=== PATIENT | female | born 1960 ===

== ENCOUNTER 2016-07-03 16:58 | Emergency (ER) | payer SELFPAY ==
[2016-07-03 17:09] VITALS: BMI 24.6
[2016-07-03] MEDS ORDERED: DiphenhydrAMINE 50 mg/ml Inj ONE (17:14)
[2016-07-03 17:16] VITALS: BP 133/68; PULSE 68; RESP 19; TEMP 98.1; O2SAT 97
[2016-07-03] MEDS ORDERED: DiphenhydrAMINE 50 mg/ml Inj IM STA (17:16)
--- NOTE | 2016-07-03 17:21 | ED PDOC ---
HPI: Eye Injury/Pain Time Seen by Provider: 07/03/16 17:07 Chief Complaint (Nursing): Eye Problem Chief Complaint (Provider): B/l eye pain History Per: Patient History/Exam Limitations: no limitations Onset/Duration Of Symptoms: Days (2) Current Symptoms Are (Timing): Still Present Injury To Eye?: No Severity: Moderate Quality: "Pain" Wears Contact Lens?: No Associated Symptoms: Pain Additional History Per: Patient Additional Complaint(s): The pt is a 56yo female, presents to the ED for evaluation of eye redness, tearing, pruritis, sneezing for the past two days. Pt rpeots she has had similar symptoms in the past and thought it was allergies. She denies any trauma , contact lens usage or a history of diabetes. Pt offers no additional medical complaints. Past Medical History Reviewed: Historical Data, Nursing Documentation, Vital Signs Vital Signs: Last Vital Signs Temp 98.1 F 07/03/16 17:14 Pulse 68 07/03/16 17:14 Resp 19 07/03/16 17:14 BP 133/68 07/03/16 17:14 Pulse Ox 97 07/03/16 17:14 - Medical History PMH: Hypercholesterolemia, Malignancy (RIGHT breast) Denies: HIV, Chronic Kidney Disease - Family History Family History: States: Unknown Family Hx - Home Medications Home Medications: Ambulatory Orders Medication Instructions Recorded Aspirin 81 mg PO DAILY #0 tab 11/13/15 Meclizine [Meclizine*] 25 mg PO BID PRN #0 tab 11/13/15 Fluticasone Propionate [Flonase] 2 spr NS DAILY PRN #1 bottle 07/03/16 Olopatadine 0.1% Opht [Patanol 1 drop BOTHEYES DAILY PRN #1 bottle 07/03/16 0.1% Opht Soln] - Allergies Allergies/Adverse Reactions: Allergies Allergy/AdvReac Type Severity Reaction Status Date / Time No Known Allergies Allergy Verified 11/11/15 13:05 Review of Systems ROS Statement: Except As Marked, All Systems Reviewed And Found Negative Eyes: Positive for: Pain, Redness Physical Exam - Reviewed Nursing Documentation Reviewed: Yes Vital Signs Reviewed: Yes - Physical Exam Appears: Positive for: Well, Non-toxic, No Acute Distress Head Exam: Positive for: ATRAUMATIC, NORMAL INSPECTION, NORMOCEPHALIC Skin: Positive for: Normal Color, Warm, DRY Eye Exam: Positive for: EOMI (without pain), PERRL, Conjunctival injection ( moderate with small subconjunctival hemorrhages in medial canthus of both eyes.) , Other (+ allergic shiner signs for both eyes). Negative for: Nystagmus - ECG O2 Sat by Pulse Oximetry: 97 (RA) Pulse Ox Interpretation: Normal Medical Decision Making Medical Decision Making: Time: 171 Impression: Allergic reaction Plan: -- Benadryl 50 mg IM --Reassess Scribe Attestation: All records were documented by Merle Scott, acting as a Scribe for BRENT Russo. Provider Scribe Attestation: All medical record entries made by the Scribe were at my direction and personally dictated by me. I have reviewed the chart and agree that the record accurately reflects my personal performance of the history, physical exam, medical decision making, and the department course for this patient. I have also personally directed, reviewed, and agree with the discharge instructions and disposition. Disposition - Clinical Impression Clinical Impression: Allergic conjunctivitis, Subconjunctival hemorrhage of both eyes - Patient ED Disposition Is Patient to be Admitted: No - Disposition Disposition: Routine/Home Disposition Time: 17:20 Condition: STABLE Prescriptions: Fluticasone Propionate [Flonase] 2 spr NS DAILY PRN #1 bottle PRN Reason: Allergy Symptoms Olopatadine 0.1% Opht [Patanol 0.1% Opht Soln] 1 drop BOTHEYES DAILY PRN #1 bottle PRN Reason: allergies Instructions: Subconjunctival Hemorrhage (ED), Conjunctivitis (ED) Print Language: BRAZILIAN
== END 2016-07-03 17:32 | disposition home or self-care (01) ==
LOC: H.ER 16:58
DX: H10.13 Acute atopic conjunctivitis, bilateral (principal); H11.33 Conjunctival hemorrhage, bilateral

== ENCOUNTER 2016-07-09 16:43 | Emergency (ER) | payer SELFPAY ==
[2016-07-09 16:45] VITALS: BMI 24.6
[2016-07-09 16:56] VITALS: BP 127/73; PULSE 74; RESP 18; TEMP 98; O2SAT 97
--- NOTE | 2016-07-09 17:41 | ED PDOC ---
HPI: Eye Injury/Pain Time Seen by Provider: 07/09/16 17:08 Chief Complaint (Nursing): Eye Problem Chief Complaint (Provider): eye irritation History Per: Patient History/Exam Limitations: no limitations Onset/Duration Of Symptoms: Days (x 1 week) Current Symptoms Are (Timing): Still Present Injury To Eye?: No Wears Contact Lens?: No Associated Symptoms: Discharge From Eye Additional Complaint(s): Tiarra Moreno is a 56 year old female, with a previous medical history of hypercholesterolemia, who presents to the ED with complaints of bilateral eye irritation ongoing for the past week. Patient was seen in the clinic and prescribed patanol eye drops which have not alleviated the symptoms. Patient reports discharge, redness and itchiness of the eyes. Patient denies any changes in vision or contact usage. PMD: none provided Past Medical History Reviewed: Historical Data, Nursing Documentation, Vital Signs Vital Signs: Last Vital Signs Temp 98.0 F 07/09/16 16:52 Pulse 74 07/09/16 16:52 Resp 18 07/09/16 16:52 BP 127/73 07/09/16 16:52 Pulse Ox 97 07/09/16 16:52 - Medical History PMH: Hypercholesterolemia, Malignancy (RIGHT breast) Denies: HIV, Chronic Kidney Disease - Surgical History Surgical History: No Surg Hx - Family History Family History: States: Unknown Family Hx - Home Medications Home Medications: Ambulatory Orders Medication Instructions Recorded Aspirin 81 mg PO DAILY #0 tab 11/13/15 Meclizine [Meclizine*] 25 mg PO BID PRN #0 tab 11/13/15 Fluticasone Propionate [Flonase] 2 spr NS DAILY PRN #1 bottle 07/03/16 Olopatadine 0.1% Opht [Patanol 1 drop BOTHEYES DAILY PRN #1 bottle 07/03/16 0.1% Opht Soln] Cetirizine HCl [Zyrtec Allergy] 10 mg PO DAILY #30 sgl 07/09/16 Polymyxin/Trimethoprim Sulfate 1 drop XX Q6H 10 Days 07/09/16 [Polytrim Ophth Soln] - Allergies Allergies/Adverse Reactions: Allergies Allergy/AdvReac Type Severity Reaction Status Date / Time No Known Allergies Allergy Verified 11/11/15 13:05 Review of Systems ROS Statement: Except As Marked, All Systems Reviewed And Found Negative Eyes: Positive for: Redness. Negative for: Pain, Vision Change Physical Exam - Reviewed Nursing Documentation Reviewed: Yes Vital Signs Reviewed: Yes - Physical Exam Appears: Positive for: Well, Non-toxic, No Acute Distress Head Exam: Positive for: ATRAUMATIC, NORMAL INSPECTION, NORMOCEPHALIC Skin: Positive for: Normal Color, Warm, DRY Eye Exam: Positive for: EOMI, PERRL, Conjunctival injection (and scleral injection ), Other (white drainage medial corcer of both eyes ) ENT: Positive for: Normal ENT Inspection Neck: Positive for: Normal Respiratory: Negative for: Accessory Muscle Use, Respiratory Distress Extremity: Positive for: Normal ROM Neurologic/Psych: Positive for: Alert, Oriented - ECG O2 Sat by Pulse Oximetry: 97 (RA) Pulse Ox Interpretation: Normal Medical Decision Making Medical Decision Making: Initial Impression: Conjunctivitis Initial Plan: * physical exam * disposition Scribe Attestation: Documented by Gracia Granados, acting as a scribe for Indiana Clark PA-C. Provider Scribe Attestation: All medical record entries made by the Scribe were at my direction and personally dictated by me. I have reviewed the chart and agree that the record accurately reflects my personal performance of the history, physical exam, medical decision making, and the department course for this patient. I have also personally directed, reviewed, and agree with the discharge instructions and disposition. Disposition - Clinical Impression Clinical Impression: Conjunctivitis - Disposition Referrals: [facility] [place] [Outside] Disposition: Routine/Home Disposition Time: 17:45 Condition: STABLE Prescriptions: Cetirizine HCl [Zyrtec Allergy] 10 mg PO DAILY #30 sgl Polymyxin/Trimethoprim Sulfate [Polytrim Ophth Soln] 1 drop XX Q6H 10 Days Instructions: Conjunctivitis (ED) Print Language: SWISS
== END 2016-07-09 17:49 | disposition home or self-care (01) ==
LOC: H.ER 16:43
DX: H10.9 Unspecified conjunctivitis (principal)

== ENCOUNTER 2017-08-20 20:43 | Emergency (ER) | payer SELFPAY ==
[2017-08-20 20:43] VITALS: BMI 24.6
--- NOTE | 2017-08-20 21:35 | ED PDOC ---
HPI: Back Time Seen by Provider: 08/20/17 21:30 Chief Complaint (Nursing): Back Pain Chief Complaint (Provider): Back Pain History Per: Patient History/Exam Limitations: no limitations Onset/Duration Of Symptoms: Days Current Symptoms Are (Timing): Still Present Additional Complaint(s): Tiarra Valderrama is a 57 year old female with a past medical history of hyperlipidemia who is presenting to the ER with complaints of lower back pain radiating down her left leg, onset 1.5 weeks ago. Patient states that the pain is worsened when sitting or walking and reports that she took Advil with minimal relief of symptoms. She denies taking any medications today for pain. Patient denies any fall, injury, or trauma and offers no other medical complaints at this time. PMD: Vandana Dennis Past Medical History Reviewed: Historical Data, Nursing Documentation, Vital Signs Vital Signs: Last Vital Signs Temp 97.6 F 08/20/17 21:06 Pulse 62 08/20/17 21:06 Resp 16 08/20/17 21:06 BP 125/63 08/20/17 21:06 Pulse Ox 98 08/20/17 21:06 - Medical History PMH: Hypercholesterolemia, Malignancy (RIGHT breast) Denies: HIV, Chronic Kidney Disease - Family History Family History: States: Unknown Family Hx - Home Medications Home Medications: Ambulatory Orders Medication Instructions Recorded Aspirin 81 mg PO DAILY #0 tab 11/13/15 Meclizine [Meclizine*] 25 mg PO BID PRN #0 tab 11/13/15 Fluticasone Propionate [Flonase] 2 spr NS DAILY PRN #1 bottle 07/03/16 Olopatadine 0.1% Opht [Patanol 1 drop BOTHEYES DAILY PRN #1 bottle 07/03/16 0.1% Opht Soln] Cetirizine HCl [Zyrtec Allergy] 10 mg PO DAILY #30 sgl 07/09/16 Polymyxin/Trimethoprim Sulfate 1 drop XX Q6H 10 Days bottle 07/09/16 [Polytrim Ophth Soln] Naproxen 375 mg PO Q8 PRN #21 tablet 08/20/17 diaZEpam [Valium] 5 mg PO Q8 PRN #4 tab 08/20/17 - Allergies Allergies/Adverse Reactions: Allergies Allergy/AdvReac Type Severity Reaction Status Date / Time No Known Allergies Allergy Verified 11/11/15 13:05 Review of Systems ROS Statement: Except As Marked, All Systems Reviewed And Found Negative Musculoskeletal: Positive for: Back Pain, Leg Pain Physical Exam - Reviewed Nursing Documentation Reviewed: Yes Vital Signs Reviewed: Yes - Physical Exam Appears: Positive for: Non-toxic, No Acute Distress Head Exam: Positive for: ATRAUMATIC, NORMAL INSPECTION, NORMOCEPHALIC Back: Positive for: Other (Tenderness to the left lower paralumbar region, and mild tenderness to gluteal region). Negative for: L CVA Tenderness, R CVA Tenderness, Vertebral Tenderness Extremity: Positive for: Normal ROM. Negative for: Deformity, Swelling Neurologic/Psych: Positive for: Alert, Oriented. Negative for: Motor/Sensory Deficits - ECG O2 Sat by Pulse Oximetry: 98 (RA) Pulse Ox Interpretation: Normal Medical Decision Making Medical Decision Making: Time: 21:35 Plan: --Valium 5 mg PO --Toradol 30 mg IM Scribe Attestation: Documented by Padmini Cox, acting as a scribe for Jennifer Priest PA-C. Provider Scribe Attestation: All medical record entries made by the Scribe were at my direction and personally dictated by me. I have reviewed the chart and agree that the record accurately reflects my personal performance of the history, physical exam, medical decision making, and the department course for this patient. I have also personally directed, reviewed, and agree with the discharge instructions and disposition. Disposition - Clinical Impression Clinical Impression: Back strain - Patient ED Disposition Is Patient to be Admitted: No - Disposition Disposition: Routine/Home Disposition Time: 23:00 Condition: FAIR Prescriptions: diaZEpam [Valium] 5 mg PO Q8 PRN #4 tab PRN Reason: Muscle Spasm Naproxen 375 mg PO Q8 PRN #21 tablet PRN Reason: Pain, Moderate (4-7) Instructions: Low Back Pain (DC) Forms: [facility] (Armenian) Print Language: ICELANDIC
[2017-08-20 23:06] VITALS: BP 122/60; PULSE 78; RESP 18; TEMP 98
[2017-08-21 15:09] VITALS: O2SAT 98
== END 2017-08-20 23:07 | disposition home or self-care (01) ==
LOC: H.ER 20:43
DX: S39.012A Strain of muscle, fascia and tendon of lower back, initial encounter (principal); Y92.89 Other specified places as the place of occurrence of the external cause; E78.00 Pure hypercholesterolemia, unspecified; Z79.82 Long term (current) use of aspirin; Z85.3 Personal history of malignant neoplasm of breast
CPT/HCPCS: 96372; 99283; J1885